=== PATIENT | male | born 1960 | race Caucasian/White ===

== ENCOUNTER 2019-09-02 18:33 | Emergency (ER) | payer OTHER, SELFPAY ==
[2019-09-02 18:35] VITALS: BP 163/94; PULSE 107; RESP 16; TEMP 37.2; O2SAT 98; BMI 33.4
[2019-09-02] MEDS: Ondansetron 4 MG/2 ML Vial IV (19:29)
[2019-09-02] MEDS: HYDROmorphone 1 MG/ML Syringe IV (19:30)
[2019-09-02 20:43] VITALS: BP 135/103; PULSE 103; RESP 15; O2SAT 93
--- NOTE | 2019-09-02 20:46 | ED.DCSUM_ITS ---
- ER Visit Summary Date of Service: 09/02/19 Chief Complaint: Right facial pain History of Present Illness: The patient is a 58 M history of hypertension. Patient's had right facial ear pain intermittently for 3 years. Is progressively becoming worse over the last several months. More frequent and more intense attacks when he has this. He seen a dentist that is pulled his teeth without any improvement. He has seen an ENT physician who did ear tubes again without any improvement. And his primary care physician has been worked up for cardiac etiology. He had a recent stress test which was abnormal and he is following that up with a human resources supervisor. He denies any chest pain or shortness of breath. He said when his pain hits is by his right ear and right lower jaw sometimes his cheek. He says extremely painful and it is worse with cold or even when blowing against it. Physical Examination: Noise male complaining of pain vital signs are stable afebrile. H EENT exam TMs unremarkable eyes appear to be in on the right. He is at some teeth been extracted but there is no swelling of his jaw or dental infection. The open close jaw. His TMJ is not tender nor does it pop or click with opening closing his mouth. Neck nontender no lymphadenopathy. Where the distribution of his pain is may be consistent with a trigeminal neuralgia. Lungs clear to auscultation bilaterally. Heart regular rhythm no murmur. Abdomen soft nontender. Extremities moves all 4. Neurovascular intact. Neurologically is awake alert with no focal motor deficits. No facial droop. Extraocular motions are intact. Test Results: None Emergency Department Course and Treatment: I explained both the patient and his family in the room it was really not specific test for this in the emergency department. I did give him IV injection Dilaudid which greatly helped his pain. He has a plan to follow-up with a neurologist. Treatment Plan: Tea for pain. Follow-up with a neurologist. Disposition: Discharge Impression: Acute atraumatic right facial pain secondary to trigeminal neuralgia This note was generated with [employer] dictation software. It may contain incorrect words, spelling, and punctuation that were not noted in review of the chart prior to signing ED Disposition - Plan for ED Patient: Referrals: Yosi Gan MD [Primary Care Provider] -
--- NOTE | 2019-09-02 20:50 | ED.DEP ---
ED Disposition - Plan for ED Patient: Disposition: Home or Assisted Living Instructions: Trigeminal Neuralgia Prescriptions: Hydrocodone/Acetaminophen [[place] 10-325 Tablet] 1 ea PO Q4H PRN PRN 7 Days #20 tab PRN Reason: Pain Or Fever Prescription Printed Referrals: Yosi Gan MD [Primary Care Provider] - As Needed Additional Instructions: Call and follow-up with the [place] [facility] one of them is Dr. Skip Crowell. You could also try Dr. Zack Harmon but he is out of [facility] and I will check with your insurance first on that one. Motrin for pain. [place] for pain.
[2019-09-02 21:09] VITALS: BP 163/94; PULSE 88; RESP 15
== END 2019-09-02 21:09 | disposition home or self-care (01) ==
PROVIDERS: Emergency Provider Emergency Medicine; PCP Internal Medicine; Referring Provider Internal Medicine
DX: G50.0 Trigeminal neuralgia (principal); I10 Essential (primary) hypertension
CPT/HCPCS: 96374; 96375; 99282; A4216; J2405

== ENCOUNTER 2020-10-25 13:12 | Outpatient (RCR) | payer OTHER, SELFPAY ==
[2020-10-25] MEDS: COVID-19 VACC, MRNA(PFIZER)/PF 30 MCG/0.3 ML SYRINGE IM (11:00)
[2020-11-15] MEDS: COVID-19 VACC, MRNA(PFIZER)/PF 30 MCG/0.3 ML SYRINGE IM (10:41)
== END 2020-10-25 23:59 ==
LOC: IMMUN 13:12
PROVIDERS: PCP Internal Medicine; Visit Provider Family Medicine
DX: Z23 Encounter for immunization (principal)
CPT/HCPCS: 0001A; 0002A; 91300

== ENCOUNTER 2021-08-20 09:11 | Outpatient (CLI) | payer OTHER, SELFPAY | END 2021-08-20 23:59 | disposition short-term general hospital (02) | LOC: LABSPEC 09:12 | PROVIDERS: PCP Internal Medicine; Referring Provider Physician Assistant; Visit Provider Physician Assistant | DX: Z11.52 Encounter for screening for COVID-19 (principal) | CPT/HCPCS: 87635; U0003; U0005 ==